=== PATIENT | female | born 1985 | race Caucasian/White ===

== ENCOUNTER 2024-02-22 21:06 | Emergency (ER) | payer MEDICAID, SELFPAY ==
[2024-02-22 21:17] VITALS: BP 140/87; PULSE 104; RESP 16; TEMP 36.3; O2SAT 96; BMI 34.7
--- NOTE | 2024-02-22 21:59 | ED_ITS ---
HPI - Extremity Problem General: Chief complaint: Extremity Problem,Nontraumatic Stated complaint: rash on right arm Time Seen by Provider: 02/22/24 21:50 History of Present Illness: 38-year-old female comes in today with r edness and inflammation to the right forearm. Patient received a tick bite about 4 days ago. Since then she has had increasing redness and tenderness with some itching. Patient appears nontoxic. Patient reported no fevers. Review of Systems General: Reports: 10 or more systems reviewed and unremarkable except in HPI and below Physical Exam Const: COMMON NORMALS: alert HENMT: COMMON NORMALS: atraumatic HEAD & SCALP: atraumatic Neck/C-Spine: COMMON NORMALS: full ROM Resp: COMMON NORMALS: normal respiratory effort and clear to auscultation bilaterally AUSCULTATION: clear to auscultation bilaterally Cardio: COMMON NORMALS: regular rate and regular rhythm RATE: regular rate RHYTHM: regular rhythm GI: COMMON NORMALS: non-tender Back/Pelvis: COMMON NORMALS: thoracic and lumbar spine normal to inspection Extremity: RIGHT UPPER EXTREMITY: Yes lower arm (Well-demarcated area of redness to the lower arm. Distal to insect bite) Neuro: SENSORIUM/ORIENTATION: Yes alert Skin: COMMON NORMALS: turgor normal NARRATIVE SKIN EXAM: Redness left lower arm volar side GENERAL SKIN EXAM: turgor normal Course Vital Signs: Vital signs: Vital Signs Temperature 97.4 F L 02/22/24 21:17 Pulse Rate 104 H 02/22/24 21:17 Respiratory Rate 16 02/22/24 21:17 Blood Pressure 140/87 02/22/24 21:17 Pulse Oximetry 96 02/22/24 21:17 Oxygen Delivery Me thod Room Air 02/22/24 21:17 MDM - Extremity (Nontraumatic) Medical Decision Making Patient presents with redness to the left lower arm. Patient has a proximal insect bite at the bend of the arm. From the insect bite there is a well- demarcated area of redness approximately 12 cm x 6 cm ovoid. It is warm to touch. And slightly elevated. Differential diagnosis includes but not limited to local reaction to insect bite, cellulitis, tickborne illness. Patient be placed on doxycycline, and triamcinolone for itching and discomfort to the skin. Recommended elevation of the arm follow-up with primary care in 1 week return to ED for worsening symptoms. Patient reported understanding. No radiology studies performed this visit Discharge Plan Discharge Patient Disposition: Home Clinical Impression: Cellulitis of arm, right Tick bite Qualifiers: Encounter type: initial encounter Site of tick bite: forearm Laterality: right Qualified Code(s): S50.861A - Insect bite (nonvenomous) of right forearm, initial encounter Condition: Stable Prescriptions: New doxycycline hyclate 100 mg capsule 100 mg PO BID 14 Days Qty: 28 0RF triamcinolone acetonide 0.1 % cream 1 applic topical BID Qty: 30 0RF Discharge Orders: Discharge ED (Routine); Ordered 02/22/24 Ordered By: Rashi Walker Discharge Diet: Usual diet Discharge Activity: Increase activity as tolerated Patient Instructions: Cellulitis (ED) Activity Restrictions/Additional Instructions: Elevate arm is much as possible. Use triamcinolone cream to help with itching and irritation of the skin. Take doxycycline 100 mg 1 capsule 2 times a day for the next 14 days. This is to cover for tickborne illnesses. Follow-up with primary care for further instructions return to ED for new concerns. Coding Level of Care Code ED [employer] for [employer] [employer]
[2024-02-22] MEDS: doxycycline 100 mg Tablet PO (22:27)
[2024-02-22 22:32] VITALS: BP 140/87; PULSE 104; RESP 16; TEMP 36.3; O2SAT 96
== END 2024-02-22 22:33 | disposition home or self-care (01) ==
PROVIDERS: Emergency Provider Nurse Practitioner Family
DX: S50.861A Insect bite (nonvenomous) of right forearm, initial encounter (principal); W57.XXXA Bitten or stung by nonvenomous insect and other nonvenomous arthropods, initial encounter; L03.113 Cellulitis of right upper limb
CPT/HCPCS: 99283